=== PATIENT | female | born 1975 | race Caucasian/White ===

== ENCOUNTER 2019-12-27 01:40 | Emergency (ER) | payer MEDICAID ==
[~2019-12-27] VITALS: Ht 149.9 cm; Wt 100.0 kg
[~2019-12-27 01:40] MED LIST: CYCL-1 PO; CYCL-394 PO; HYDR1TAB PO; IBUP-1984 PO; PAT0.1OS OP
[2019-12-27 02:13] VITALS: BP 137/71
== END 2019-12-27 03:43 | disposition home or self-care (01) ==
LOC: ER 01:41
DX: J20.9 Acute bronchitis, unspecified (principal); I10 Essential (primary) hypertension; R22.43 Localized swelling, mass and lump, lower limb, bilateral; F17.200 Nicotine dependence, unspecified, uncomplicated; Z98.890 Other specified postprocedural states; Z88.0 Allergy status to penicillin; Z91.012 Allergy to eggs; Z88.8 Allergy status to other drugs, medicaments and biological substances; Z79.899 Other long term (current) drug therapy
CPT/HCPCS: 87502; 87503; 99283

== ENCOUNTER 2020-04-09 09:41 | Day surgery (SDC) | payer MEDICAID ==
[~2020-04-09] VITALS: Ht 149.9 cm; Wt 122.7 kg
[2020-04-09 09:51] VITALS: BP 115/72
[2020-04-09] MEDS ORDERED: THY60T PO (10:29)
[2020-04-09] MEDS ORDERED: LOSA25TA41 (10:30)
[2020-04-09] MEDS ORDERED: GABA-530 PO (10:32)
[2020-04-09] MEDS ORDERED: fentaNYL/PF 50MCG/1 ML 2ML syringe ONE (11:30)
[2020-04-09] MEDS ORDERED: MIDAZolam 1mg/ml 10ml vial ONE ×2 (11:30→12:30)
[2020-04-09 12:02] VITALS: BP 120/62
[2020-04-09 12:12] VITALS: BP 124/78
[2020-04-09 12:22] VITALS: BP 123/72
[2020-04-09 12:32] VITALS: BP 119/72
== END 2020-04-09 12:35 | disposition home or self-care (01) ==
LOC: GI LAB 09:41
PROVIDERS: ATTEND Internal Medicine Gastroenterology
DX: R19.7 Diarrhea, unspecified (principal); K57.30 Diverticulosis of large intestine without perforation or abscess without bleeding; K64.8 Other hemorrhoids
CPT/HCPCS: 45380; 99152; 99153; J2250; J3010; J7040; A4620

== ENCOUNTER 2024-02-15 20:41 | Emergency (ER) | payer MEDICAID ==
[~2024-02-15] VITALS: Ht 149.9 cm; Wt 137.0 kg
[~2024-02-15 20:41] MED LIST changes: -CYCL-1 PO; -CYCL-394 PO; +GABA-530 PO; +LOSA25TA41; +THY60T PO
[2024-02-15] MEDS ORDERED: AZIT-164 PO (23:30)
[2024-02-15] MEDS: azithromycin 250mg tablet PO ONE (23:47)
[2024-02-15 23:52] VITALS: BP 155/88; PULSE 59; RESP 16; TEMP 98; O2SAT 95
== END 2024-02-15 23:55 | disposition home or self-care (01) ==
LOC: ER 20:42
DX: J06.9 Acute upper respiratory infection, unspecified (principal); H66.91 Otitis media, unspecified, right ear; H66.92 Otitis media, unspecified, left ear; I10 Essential (primary) hypertension; Z88.1 Allergy status to other antibiotic agents; Z91.012 Allergy to eggs; Z88.6 Allergy status to analgesic agent; Z79.2 Long term (current) use of antibiotics; Z79.1 Long term (current) use of non-steroidal anti-inflammatories (NSAID); Z79.899 Other long term (current) drug therapy; Z98.890 Other specified postprocedural states; Z87.891 Personal history of nicotine dependence
CPT/HCPCS: 71045; 99284

== ENCOUNTER 2024-03-03 06:19 | Emergency (ER) | payer MEDICAID ==
[~2024-03-03] VITALS: Ht 149.9 cm; Wt 138.0 kg
[~2024-03-03 06:19] MED LIST changes: +AZIT-164 PO
[2024-03-03] MEDS: cyclobenzaprine 10mg tablet PO ONE (10:11)
[2024-03-03 11:24] VITALS: BP 140/81; PULSE 66; RESP 17; TEMP 97.7; O2SAT 98
== END 2024-03-03 11:26 | disposition home or self-care (01) ==
LOC: ER 06:20
DX: M54.50 Low back pain, unspecified (principal); Z88.8 Allergy status to other drugs, medicaments and biological substances; Z88.1 Allergy status to other antibiotic agents; Z91.012 Allergy to eggs; I10 Essential (primary) hypertension; W18.30XA Fall on same level, unspecified, initial encounter; Y93.89 Activity, other specified; Y92.89 Other specified places as the place of occurrence of the external cause; Y99.8 Other external cause status
CPT/HCPCS: 72100; 72170; 72220; 99284